=== PATIENT | female | born 1945 ===

== ENCOUNTER 2022-08-14 08:30 | Inpatient (IN) ==
[2022-08-19] MEDS ORDERED: Lactated Ringers 1000 ml BAG 1,000 ML IV SCH (06:00)
[2022-08-19] MEDS ORDERED: Buffered Lidocaine 1% SYRIN 1 ml INTRADERM ONE (06:00)
[2022-08-19] MEDS ORDERED: Naloxone 0.4 mg VIAL 0.4 mg/ml 1 ml VIAL IV PRN (07:30)
[2022-08-19] MEDS ORDERED: Prochlorperazine 5 mg/ml 2 ml VIAL (10 mg) IV PRN (07:30)
[2022-08-19] MEDS ORDERED: ceFAZolin 2 GM PREMIX 2 GM/50 ML BAG ONE (11:49)
[2022-08-19 12:03] LABS: Rapid COVID-19 Molecular Undetected (Undetected)
[2022-08-19] MEDS ORDERED: Lidocaine 2% PF 5 ML VIAL ONE (12:11)
[2022-08-19] MEDS ORDERED: fentaNYL 100 mcg/2 ml 50 MCG/ML VIAL ONE ×2 (12:11→14:31)
[2022-08-19] MEDS ORDERED: Propofol 10 MG/ML 20 ML BTL ONE ×4 (12:11→15:14)
[2022-08-19] MEDS ORDERED: Midazolam 2 mg/2 ml VIAL 1 mg/ml 2 ml VIAL (2 mg) ONE (12:12)
[2022-08-19] MEDS ORDERED: ROPIVACAINE 5 MG/ML 30 ML BTL (0.5%) ONE (13:02)
[2022-08-19] MEDS ORDERED: Sodium Citrate/Citric Acid LIQ 15 ML UDC ONE (13:25)
[2022-08-19] MEDS ORDERED: Ropivacaine 5 MG/ML 20 ML VIAL 0.5% (100 MG) ONE ×2 (13:45→16:44)
[2022-08-19] MEDS ORDERED: Ondansetron ODT 4 mg TAB 4 MG TAB PO PRN (15:10)
[2022-08-19] MEDS ORDERED: Lactulose 30 ml UDC PO PRN (15:10)
[2022-08-19] MEDS ORDERED: Magnesium Hydroxide LIQ 30 ML UDC PO PRN (15:10)
[2022-08-19] MEDS ORDERED: Morphine 2 MG/ML SYRINGE IV PRN (15:10)
[2022-08-19] MEDS ORDERED: Ondansetron 4 mg VIAL 2 MG/ML 2 ml VIAL IV PRN (15:10)
[2022-08-19] MEDS ORDERED: HYDROmorphone 1 MG/1 ML SYRINGE ONE (17:07)
[2022-08-19] MEDS: HYDROmorphone 1 MG/1 ML SYRINGE IV PRN ×5 (17:08→17:30)
[2022-08-19] MEDS: Lactated Ringers 1000 ml BAG 1,000 ML IV SCH (18:27)
[2022-08-19] MEDS: Magnesium Hydroxide LIQ 30 ML UDC PO SCH (20:52)
[2022-08-19] MEDS: ceFAZolin 1 GM ADVAN 1 GM in NS 0.9% 50 ML 50 ML IVPB SCH (20:53)
[2022-08-19] MEDS ORDERED: hydrALAZINE 20 mg/ml 1 ML Vial IV IV SLOW PU PRN (21:10)
[2022-08-20] MEDS: Lactated Ringers 1000 ml BAG 1,000 ML IV SCH (04:29)
[2022-08-20] MEDS: ceFAZolin 1 GM ADVAN 1 GM in NS 0.9% 50 ML 50 ML IVPB SCH ×2 (05:08→14:04)
[2022-08-20 06:50] LABS: Hemoglobin 11.8 g/dL (11.5-14.3); Mean Platelet Volume 7.6 fL (7.5-11.2); Platelet Count 218 10^3/uL (150-450)
[2022-08-20 07:11] LABS: Calcium 8.7 mg/dL (8.6-10.3); Creatinine, Serum 0.78 mg/dL (0.51-0.95); Potassium 4.1 mmol/L (3.5-5.0); eGFR CKD-EPI 78.7 (>60)
[2022-08-20] MEDS: Magnesium Hydroxide LIQ 30 ML UDC PO SCH (08:59)
[2022-08-20] MEDS ORDERED: Vitamin THERAPEUTIC TAB PO SCH (09:00)
[2022-08-20 14:05] VITALS: BP 120/68
== END 2022-08-20 15:30 | disposition home or self-care (01) | DRG 470 ==
LOC: AA 08-19 11:11 → OBSVTOIN 08-19 11:11 → INTOOBSV 08-19 11:11 → SSU 08-19 18:26
PROVIDERS: ADMIT Orthopaedic Surgery Adult Reconstructive Orthopaedic Surgery; ATTEND Orthopaedic Surgery Adult Reconstructive Orthopaedic Surgery

== ENCOUNTER 2023-04-21 07:30 | Inpatient (IN) ==
[~2023-04-21 07:30] MED LIST: Naloxone 0.4 mg VIAL 0.4 mg/ml 1 ml VIAL IV PRN
[2023-04-21] MEDS ORDERED: Propofol 10 MG/ML 20 ML BTL ONE ×2 (12:10→15:16)
[2023-04-21] MEDS ORDERED: Lidocaine 2% PF 5 ML VIAL ONE (12:10)
[2023-04-21] MEDS ORDERED: Midazolam 2 mg/2 ml VIAL 1 mg/ml 2 ml VIAL (2 mg) ONE (12:11)
[2023-04-21] MEDS ORDERED: fentaNYL 100 mcg/2 ml 50 MCG/ML VIAL ONE ×3 (12:11→18:32)
[2023-04-21 12:48] LABS: Rapid COVID-19 Molecular Undetected (Undetected)
[2023-04-21] MEDS ORDERED: ROPIVACAINE 5 MG/ML 30 ML BTL (0.5%) ONE ×2 (13:42→13:47)
[2023-04-21] MEDS ORDERED: Bupivacaine-MPF SPINAL 7.5 MG/ML - 2ML AMP ONE (14:25)
[2023-04-21] MEDS ORDERED: Ondansetron 4 mg VIAL 2 MG/ML 2 ml VIAL ONE (15:16)
[2023-04-21] MEDS ORDERED: Ondansetron ODT 4 mg TAB 4 MG TAB PO PRN (15:46)
[2023-04-21] MEDS ORDERED: Lactulose 30 ml UDC PO PRN (15:46)
[2023-04-21] MEDS ORDERED: Magnesium Hydroxide LIQ 30 ML UDC PO PRN (15:46)
[2023-04-21] MEDS ORDERED: Morphine 2 MG/ML SYRINGE IV PRN (15:46)
[2023-04-21] MEDS ORDERED: Ondansetron 4 mg VIAL 2 MG/ML 2 ml VIAL IV PRN (15:46)
[2023-04-21] MEDS: fentaNYL 100 mcg/2 ml 50 MCG/ML VIAL IV PRN (17:38)
[2023-04-21] MEDS: Lactated Ringers 1000 ml BAG 1,000 ML IV SCH (18:50)
[2023-04-21] MEDS: Magnesium Hydroxide LIQ 30 ML UDC PO SCH (19:57)
[2023-04-21] MEDS: ceFAZolin 1 GM ADVAN 1 GM in NS 0.9% 50 ML 50 ML IVPB SCH (19:58)
[2023-04-22 05:21] LABS: Hematocrit 31.8 % (35-45); Mean Platelet Volume 7.4 fL (7.5-11.2); Platelet Count 196 10^3/uL (150-450)
[2023-04-22 05:43] LABS: Calcium 8.5 mg/dL (8.6-10.3); Creatinine, Serum 0.84 mg/dL (0.51-0.95); Potassium 4.4 mmol/L (3.5-5.0); eGFR CKD-EPI 71.5 (>60)
[2023-04-22] MEDS: Buffered Lidocaine 1% SYRIN 1 ml INTRADERM ONE (06:59)
[2023-04-22] MEDS: Lactated Ringers 1000 ml BAG 1,000 ML IV SCH (06:59)
[2023-04-22 10:47] VITALS: BP 112/58
[2023-04-22] MEDS: Vitamin THERAPEUTIC TAB PO SCH (11:08)
== END 2023-04-22 14:45 | disposition home or self-care (01) | DRG 470 ==
LOC: OBSVTOIN 11:20 → INTOOBSV 11:20 → AA 11:20 → SSU 18:48
PROVIDERS: ADMIT Orthopaedic Surgery Adult Reconstructive Orthopaedic Surgery; ATTEND Orthopaedic Surgery Adult Reconstructive Orthopaedic Surgery